=== PATIENT | female | born 1950 | race Hispanic/Latino ===

== ENCOUNTER 2018-07-29 22:05 | Inpatient (IN) | payer MEDICARE, OTHER ==
--- NOTE | 2018-07-29 22:23 | Emergency Department Report ---
Chief Complaint: Chest Pain Stated Complaint: CHEST TIGHTNESS Time Seen by Provider: 07/29/18 22:20 - HPI History of Present Illness: pt thinks she is having issues with her "pancreatitis" is c/o epigastric abd pain +N/V no diarrhea no fever states she has chest tightness had a FL in Mar 2016, pt has cardiac stent PMHx DM former smoker, 25 years ago non drinker PSHx of cholecystectomy MSE screening note: Focused history and physical exam performed. Due to findings the following was ordered: labs, CXR ED Disposition for MSE Condition: Stable
[2018-07-29 22:47] LABS: Basophils # (Auto) 0.1 K/mm3 (0.0-0.1); Basophils % (Auto) 0.4 % (0.0-1.8); Eosinophils % (Auto) 0.2 % (0.0-4.3); Hematocrit 39.1 % (30.3-42.9); Hemoglobin 13.1 gm/dl (10.1-14.3); Lymphocytes # (Auto) 0.8 K/mm3 (1.2-5.4); Lymphocytes % (Auto) 5.4 % (13.4-35.0); Mean Corpuscular HGB Conc 34 % (30-34); Mean Corpuscular Volume 88 fl (79-97); Monocytes # (Auto) 0.7 K/mm3 (0.0-0.8); Monocytes % (Auto) 4.9 % (0.0-7.3); Platelet Count 253 K/mm3 (140-440); Red Blood Count 4.46 M/mm3 (3.65-5.03)
[2018-07-29 22:58] LABS: INR 0.99 (0.87-1.13); Partial Thromboplastin Time 23.4 Sec. (24.2-36.6)
[2018-07-29 23:11] LABS: Alanine Aminotransferase 18 units/L (7-56); BUN/Creatinine Ratio 27; Blood Urea Nitrogen 19 mg/dL (7-17); Calcium 9.4 mg/dL (8.4-10.2); Hemolysis Index 7
[2018-07-30] MEDS ORDERED: ZOFRAN IV ONE (00:13)
[2018-07-30] MEDS ORDERED: NACL 0.9% 500 ML 500 ML IV ONE (00:58)
--- NOTE | 2018-07-30 01:04 | Emergency Department Report ---
ED Chest Pain HPI - General Chief Complaint: Chest Pain Stated Complaint: CHEST TIGHTNESS Time Seen by Provider: 07/29/18 22:20 Source: patient Mode of arrival: Ambulatory Limitations: No Limitations - History of Present Illness Initial Comments: 67-year-old female with a past medical history of GERD, STEMI requiring LAD stent placed March 2017, diabetes, and pancreatitis presents to the hospital complaining of nausea, epigastric pain, and chest pain 1 day. Patient states she had nausea since this a.m. She tried taking Zofran in the afternoon with minimal relief. She then started having intermittent chest tightness as well. Patient having nausea with several episodes of vomiting and intermittent diaphoresis. She presented to chronic shortness of breath that is unchanged from baseline. Patient has significant GERD and is chronically on Carafate, Pepcid, and Protonix but insists this is different from her GERD pain. She also has a history of pancreatitis in the past is unknown cause. She denies alcohol use and has had a previous cholecystectomy. Patient states that since tightness radiates to the back and upper abdomen. She has some mild discomfort around the umbilicus without reproducible pain. She denies fever or dysuria. She's been compliant with her medications. - Related Data Home Medications Medication Instructions Recorded Confirmed Last Taken Aspirin EC [Aspirin Enteric Coated 81 mg PO QDAY 07/12/17 07/12/17 06/19/17 TAB] Lisinopril [Zestril TAB] 2.5 mg PO QDAY 07/12/17 07/12/17 06/19/17 Metoprolol [Lopressor] 25 mg PO BID 07/12/17 07/12/17 06/19/17 Pantoprazole [Protonix] 40 mg PO QDAY 07/12/17 07/12/17 06/19/17 Allergies Allergy/AdvReac Type Severity Reaction Status Date / Time Penicillins Allergy Unknown Verified 07/12/17 09:43 Sulfa (Sulfonamide Allergy Unknown Verified 07/12/17 09:43 Antibiotics) Heart Score - HEART Score History: Moderately suspicious EKG: Non-specific Age: > 65 Risk factors: > 3 risk factors or hx of atherosclerotic disease Troponin: < normal limit HEART Score: 6 ED Review of Systems ROS: Stated complaint: CHEST TIGHTNESS Other details as noted in HPI Comment: All other systems reviewed and negative ED Past Medical Hx - Past Medical History Previous Medical History?: Yes Hx Hypertension: (denies) Hx Heart Attack/AMI: Yes (recent STEMI) Hx Diabetes: Yes Hx GERD: Yes Hx Arthritis: Yes Hx HIV: No Additional medical history: pancreatitis - Surgical History Past Surgical History?: Yes Hx Cholecystectomy: Yes Additional Surgical History: hysterectomy, bladder surgery - Social History Smoking Status: Never Smoker Substance Use Type: None - Medications Home Medications: Home Medications Medication Instructions Recorded Confirmed Last Taken Type Aspirin EC [Aspirin Enteric Coated 81 mg PO QDAY 07/12/17 07/12/17 06/19/17 History TAB] Lisinopril [Zestril TAB] 2.5 mg PO QDAY 07/12/17 07/12/17 06/19/17 History Metoprolol [Lopressor] 25 mg PO BID 07/12/17 07/12/17 06/19/17 History Pantoprazole [Protonix] 40 mg PO QDAY 07/12/17 07/12/17 06/19/17 History ED Physical Exam - General Limitations: No Limitations - Other Other exam information: General: No limitations, patient is alert in no acute distress Head exam: Atraumatic, normocephalic Eyes exam: Normal appearance, nonicteric sclera ENT: Moist mucous membrane Neck exam: Normal inspection, full range of motion, no meningismus nontender Respiratory exam: Clear to auscultation bilateral, no wheezes, rales, crackles Cardiovascular: Normal rate and rhythm, normal heart sounds Abdomen: Soft, nondistended, and nontender, with normal bowel sounds, no rebound, or guarding Extremity: Full range of motion normal inspection no deformity, no calf tenderness or edema Back: Normal Inspection, full range of motion, no tenderness Neurologic: Alert, oriented x3, cranial nerves intact, no motor or sensory deficit Psychiatric: normal affect, normal mood Skin: Warm, dry, intact ED Course Vital Signs 07/29/18 22:17 Temperature 98.1 F Pulse Rate 80 Respiratory 18 Rate Blood Pressure 127/71 O2 Sat by Pulse 96 Oximetry CHRIS score - Chris Score Age > 65: (1) Yes Aspirin use within the Past 7 Days: (1) Yes 3 or more CAD Risk Factors: (1) Yes 2 or more Angina events in past 24 hrs: (1) Yes Known CAD with more than 50% Stenosis: (1) Yes Elevated Cardiac Markers: (0) No ST Deviation Greater than 0.5mm: (0) No CHRIS Score: 5 ED Medical Decision Making - Lab Data Result diagrams: 07/29/18 22:30 07/29/18 22:30 Lab Results 07/29/18 07/29/18 07/29/18 Range/Units 22:30 22:30 22:30 WBC 15.0 H (4.5-11.0) K/mm3 RBC 4.46 (3.65-5.03) M/mm3 Hgb 13.1 (10.1-14.3) gm/dl Hct 39.1 (30.3-42.9) % MCV 88 (79-97) fl MCH 29 (28-32) pg MCHC 34 (30-34) % RDW 14.0 (13.2-15.2) % Plt Count 253 (140-440) K/mm3 Lymph % (Auto) 5.4 L (13.4-35.0) % [place] % (Auto) 4.9 (0.0-7.3) % Eos % (Auto) 0.2 (0.0-4.3) % Baso % (Auto) 0.4 (0.0-1.8) % Lymph # 0.8 L (1.2-5.4) K/mm3 [place] # 0.7 (0.0-0.8) K/mm3 Eos # 0.0 (0.0-0.4) K/mm3 Baso # 0.1 (0.0-0.1) K/mm3 Seg Neutrophils % 89.1 H (40.0-70.0) % Seg Neutrophils # 13.4 H (1.8-7.7) K/mm3 PT 13.7 (12.2-14.9) Sec. INR 0.99 (0.87-1.13) APTT 23.4 L (24.2-36.6) Sec. Sodium 142 (137-145) mmol/L Potassium 4.0 (3.6-5.0) mmol/L Chloride 103.2 (98-107) mmol/L Carbon Dioxide 24 (22-30) mmol/L Anion Gap 19 mmol/L BUN 19 H (7-17) mg/dL Creatinine 0.7 (0.7-1.2) mg/dL Estimated GFR > 60 ml/min BUN/Creatinine Ratio 27 % Glucose 127 H (65-100) mg/dL Calcium 9.4 (8.4-10.2) mg/dL Total Bilirubin 0.60 (0.1-1.2) mg/dL AST 19 (5-40) units/L ALT 18 (7-56) units/L Alkaline Phosphatase 78 (35-129) units/L Troponin T < 0.010 (0.00-0.029) ng/mL Total Protein 6.8 (6.3-8.2) g/dL Albumin 4.0 (3.9-5) g/dL Albumin/Globulin Ratio 1.4 % Lipase 76 H (13-60) units/L 07/30/18 Range/Units 01:09 WBC (4.5-11.0) K/mm3 RBC (3.65-5.03) M/mm3 Hgb (10.1-14.3) gm/dl Hct (30.3-42.9) % MCV (79-97) fl MCH (28-32) pg MCHC (30-34) % RDW (13.2-15.2) % Plt Count (140-440) K/mm3 Lymph % (Auto) (13.4-35.0) % [place] % (Auto) (0.0-7.3) % Eos % (Auto) (0.0-4.3) % Baso % (Auto) (0.0-1.8) % Lymph # (1.2-5.4) K/mm3 [place] # (0.0-0.8) K/mm3 Eos # (0.0-0.4) K/mm3 Baso # (0.0-0.1) K/mm3 Seg Neutrophils % (40.0-70.0) % Seg Neutrophils # (1.8-7.7) K/mm3 PT (12.2-14.9) Sec. INR (0.87-1.13) APTT (24.2-36.6) Sec. Sodium (137-145) mmol/L Potassium (3.6-5.0) mmol/L Chloride (98-107) mmol/L Carbon Dioxide (22-30) mmol/L Anion Gap mmol/L BUN (7-17) mg/dL Creatinine (0.7-1.2) mg/dL Estimated GFR ml/min BUN/Creatinine Ratio % Glucose (65-100) mg/dL Calcium (8.4-10.2) mg/dL Total Bilirubin (0.1-1.2) mg/dL AST (5-40) units/L ALT (7-56) units/L Alkaline Phosphatase (35-129) units/L Troponin T < 0.010 (0.00-0.029) ng/mL Total Protein (6.3-8.2) g/dL Albumin (3.9-5) g/dL Albumin/Globulin Ratio % Lipase (13-60) units/L - EKG Data -: EKG Interpreted by Me (previous anteroseptal infarct) EKG shows normal: sinus rhythm, axis (qrs 54), QRS complexes (qrsd 87), ST-T waves (no stemi/t inv) Rate: normal (74) - EKG Data When compared to previous EKG there are: changes noted (previous EKG shows ST elevation [place]) - Radiology Data Radiology results: report reviewed PROCEDURE: CT ABDOMEN PELVIS W CON TECHNIQUE: Computerized axial tomography of the abdomen and pelvis was performed after the IV injection of iodinated nonionic contrast. HISTORY: epigastric pain n,v COMPARISONS: None . FINDINGS: Visualized lower thorax: No significant abnormality. Liver: Normal size and attenuation. Spleen: Normal size and attenuation. Gallbladder and biliary system: Gallbladder is absent. There is mild dilatation of the biliary ductal system and common bile duct. No stones are identified.. Pancreas: Normal. A drenals: Normal. Kidneys: The kidneys have normal size. No hydronephrosis. No renal stones or masses. GI tract: The stomach is normal. The small bowel has normal caliber without obstruction. No ileus or enteritis. The cecum, appendix and colon are normal. . Lymph nodes and mesentery: Normal. Vasculature: Normal.. Bladder: Normal. Reproductive organs: No pelvic masses. Peritoneum: No free fluid. Musculoskeletal structures: No significant abnormality. Other: None . IMPRESSION: There is no evidence of intestinal or urinary tract obstruction. No ileus or enteritis. There is been previous cholecystectomy. There is slight dilatation of the central biliary ductal system and common bile duct. . PROCEDURE: XR CHEST 1V AP TECHNIQUE: Chest radiograph single view. HISTORY: cp COMPARISONS: None . FINDINGS: Heart: Normal. Mediastinum/Vessels: Normal. Lungs/Pleural space: Normal. Bony thorax: No acute osseous abnormality. Life support devices: None. IMPRESSION: No acute cardiopulmonary abnormality. - Differential Diagnosis WI, unstable angina, GERD, gastritis, PUD, pancreatitis Critical Care Time: No Critical care attestation.: If time is entered above; I have spent that time in minutes in the direct care of this critically ill patient, excluding procedure time. ED Disposition Clinical Impression: Chest pain, Epigastric pain, Nausea and vomiting, Hx of gastroesophageal reflux (GERD), Diabetes mellitus type 2 in nonobese, HTN (hypertension) Disposition: OP ADMIT IP TO THIS HOSP Is pt being admited?: Yes Condition: Stable Time of Disposition: 01:51 (Dr Ponce/hosp)
--- NOTE | 2018-07-30 01:47 | Cat Scan Report ---
PROCEDURE: CT ABDOMEN PELVIS W CON TECHNIQUE: Computerized axial tomography of the abdomen and pelvis was performed after the IV inject ion of iodinated nonionic contrast. HISTORY: epigastric pain n,v COMPARISONS: None . FINDINGS: Visualized lower thorax: No significant abnormality. Liver: Normal size and attenuation. Spleen: Normal size and attenuation. Gallbladder and biliary system: Gallbladder is absent. There is mild dilatation of the biliary ductal system and common bile duct. No stones are identified.. Pancreas: Normal. Adrenals: Normal. Kidneys: The kidneys have normal size. No hydronephrosis. No renal stones or masses. GI tract: The stomach is normal. The small bowel has normal caliber without obstruction. No ileus or enteritis. The cecum, appendix and colon are normal. . Lymph nodes and mesentery: Normal. Vasculature: Normal.. Bladder: Normal. Reproductive organs: No pelvic masses. Peritoneum: No free fluid. Musculoskeletal structures: No significant abnormality. Other: None . IMPRESSION: There is no evidence of intestinal or urinary tract obstruction. No ileus or enteritis. There is been previous cholecystectomy. There is slight dilatation of the central biliary ductal syst em and common bile duct. . This document is electronically signed by Duyen James DO., Jul 30 2018 01:45:20 AM ET
--- NOTE | 2018-07-30 01:49 | XRay Report ---
PROCEDURE: XR CHEST 1V AP TECHNIQUE: Chest radiograph single view. HISTORY: cp COMPARISONS: None . FINDINGS: Heart: Normal. Mediastinum/Vessels: Normal. Lungs/Pleural space: Normal. Bony thorax: No acute osseous abnormality. Life support devices: None. IMPRESSION: No acute cardiopulmonary abnormality. This document is electronically signed by Duyen James DO., Jul 30 2018 01:47:28 AM ET
[2018-07-30] MEDS ORDERED: MORPHINE IV PRN (02:36)
[2018-07-30] MEDS ORDERED: ZOFRAN IV PRN (02:37)
[2018-07-30] MEDS ORDERED: NITROSTAT SL PRN (02:38)
[2018-07-30] MEDS ORDERED: TYLENOL PR PRN (02:44)
[2018-07-30] MEDS ORDERED: DILAUDID IV PRN (03:02)
[2018-07-30] MEDS ORDERED: D50W (25GM) Syringe IV PRN (03:04)
--- NOTE | 2018-07-30 04:08 | History and Physical Report ---
CHIEF COMPLAINT: Chest pain. Other complaint includes epigastric abdominal pain. HISTORY OF PRESENT ILLNESS: The patient is a 67-year-old female who said she started having epigastric and retrosternal chest pain going on since yesterday. The pain was associated with nausea and vomiting. The patient described the pain as intermittent tightness in the chest and in the retrosternal and epigastric area. Pain radiates to the back. There is history of shortness of breath. There is also history of diaphoresis. The patient denied history of fever or chills and denied history of cough and she said she thought she was having the type of pain she had when she had pancreatitis. However, the patient does not drink alcohol and has had cholecystectomy in the past. There is no history of dizziness and no history of chills. PAST MEDICAL HISTORY: Pertinent for hypertension, coronary artery disease, status post myocardial infarction. Also, the patient has past history of diabetes mellitus, gastroesophageal reflux disease, arthritis and pancreatitis. PAST SURGICAL HISTORY: Pertinent for cholecystectomy, hysterectomy, and bladder surgery. FAMILY HISTORY: Noncontributory. SOCIAL HISTORY: The patient does not smoke, does not drink alcohol and does not use illicit drugs. MEDICATIONS: The patient is on aspirin 81 mg by mouth daily, lisinopril 2.5 mg by mouth daily, Lopressor 25 mg by mouth twice daily, pantoprazole for Protonix 40 mg by mouth daily. ALLERGIES: The patient is allergic to PENICILLIN DRUGS and SULFONAMIDE DRUGS. REVIEW OF SYSTEMS: CONSTITUTIONAL: There is no fever, no chills. Diaphoresis is present. HEENT: There is no headache or sore throat. CARDIOVASCULAR SYSTEM: Chest pain is present. No orthopnea. RESPIRATORY SYSTEM: Shortness of breath is present. No cough. GASTROINTESTINAL SYSTEM: Epigastric abdominal pain present. Nausea and vomiting present. No diarrhea, no constipation. NEUROLOGICAL SYSTEM: There is no numbness, no dizziness, no altered mental status. MUSCULOSKELETAL SYSTEM: There is no joint pain or swelling. DERMATOLOGICAL SYSTEM: There is no skin rash or itching. GENITOURINARY SYSTEM: There is no dysuria, hematuria, or flank pain. Rest of system review is normal. PHYSICAL EXAMINATION: GENERAL: At the time of exam, the patient was found to be alert, oriented x 3, and not in acute distress VITAL SIGNS: At initial time of presentation show temperature of 98.1 degrees Fahrenheit, pule of 80, respirations 18, blood pressure 127/71, O2 sat of 96% on room air. HEENT: Showed pupils to be equal, round, and reactive to light and accommodation. Extraocular motions are intact. NECK: Supple with no JVD or carotid bruit. CARDIOVASCULAR SYSTEM: Showed first and second heart sounds to be normal with no gallops or murmurs. RESPIRATORY SYSTEM: Showed good air entry on both sides of the lungs with no abnormal breath sounds. GASTROINTESTINAL SYSTEM: Showed abdomen to be full, soft with epigastric tenderness and no rebound tenderness or rigidity. No organomegaly was elicited. Bowel sound is normal. NEUROLOGICAL SYSTEM: Showed no focal deficit. MUSCULOSKELETAL SYSTEM: Showed no joint swelling or tenderness. DERMATOLOGICAL SYSTEM: Showed no skin rash. GENITOURINARY SYSTEM: Showed no costovertebral angle tenderness. PERTINENT LABORATORY AND IMAGING STUDIES: The patient had CT of the abdomen and pelvis done and this shows no evidence of intestinal or urinary tract obstruction. No ileus or enteritis was found. There is evidence of previous cholecystectomy. The CT abdomen and pelvis also showed slight dilatation of the central biliary ductal system and the common bile duct. The patient had chest x-ray done and chest x-ray shows no acute cardiopulmonary abnormalities. Lab results: The patient had CBC done with elevated white count of 15,000 with normal hemoglobin, normal hematocrit, and normal MCV with CBC differential showing elevated segmented neutrophil count of 89.1%. The patient's coagulation study was unremarkable. The patient's chemistry showed slightly elevated BUN of 19 with normal creatinine and normal GFR of greater 60. The patient's cardiac enzymes show normal troponin level. The patient's lipase level is slightly elevated with a value of 76. DIAGNOSES: 1. Chest pain. 2. Epigastric abdominal pain. 3. Dilated common bile duct on CT scan. PLAN OF CARE: 1. The patient will be admitted to telemetry. 2. The patient will have serial cardiac enzymes involving troponin, total CK and CK-MB checked every 6 hour x 2 more levels. 3. The patient will be n.p.o. for Lexiscan stress test in the morning. 4. The patient will have a GI consult with [facility], notably Dr. Jamie Ervin because of epigastric abdominal pain with dilatation of common bile duct on CT scan. 5. The patient will be on nitro paste 0.5 inch topically t.i.d. and will also be on Nitrostat or sublingual nitroglycerin 0.4 mg every 5 minutes as needed for breakthrough chest pain. 6. The patient will be on IV Dilaudid 0.5 mg q.4 hours as needed for pain and will be on IV Zofran 4 mg every 6 hours as needed for nausea and vomiting. 7. The patient will be on Tylenol 650 mg rectally every 4 hours for headache and fever and will be on daily aspirin 325 mg by mouth daily. 8. The patient will be on heparin 5000 units subQ q.12 hours for DVT prophylaxis. 9. The patient will be on oxygen by nasal cannula at 2 liters per minute. 10. The patient will remain n.p.o. until Lexiscan stress test is done this morning. JOB# [id number] [facility]/AMPARO MTDD
[2018-07-30 06:04] LABS: Bilirubin,Urine NEG (Negative); Blood,Urine NEG (Negative); Color,Urine Yellow (Yellow); Mucus,Urine FEW /HPF; Protein,Urine <15 mg/dL mg/dL (Negative); Urobilinogen,Urine < 2.0 mg/dL (<2.0); WBC,Urine < 1.0 /HPF (0.0-6.0)
[2018-07-30 06:42] LABS: Creatine Kinase MB 3.5 ng/mL (0.0-4.0)
[2018-07-30] MEDS: HumuLIN R SUB-Q SCH ×5 (07:48→22:58)
[2018-07-30] MEDS: NITRO-BID 2% TP SCH ×4 (07:48→17:02)
[2018-07-30] MEDS: ASPIRIN PO SCH (10:30)
[2018-07-30] MEDS: HEPARIN SUB-Q SCH ×2 (10:30→22:56)
--- NOTE | 2018-07-30 11:47 | Consultation ---
History of Present Illness Consult date: 07/30/18 Consult reason: chest pain History of present illness: This is a 67 year old woman with a history of ischemic cardiomyopathy and single vessel coronary artery disease with stenting of the LAD following an acute anterior wall ST elevation myocardial infarction a year ago. Patient reports compliance with medical therapy including plavix and aspirin. 2 months ago, an outpatient echocardiogram reports a mildly decreased left ventricular ejection fraction 40-45%, an improvement from EF 30-35% a year ago. Patient presents to this hospital with complaints of nausea, vomiting and severe epigastric pain. She reports symptoms are similar to pancreatic flare. She denies chest pain on exertion and unusual shortness of breath. Chest x-ray is normal and an abdominal CT scan reports no acute process. Cardiac enzymes are benign and her ECG is sinus rhythm, no acute ischemic changes. A cardiac consultation was requested for further evaluation. Medications and Allergies Allergies Allergy/AdvReac Type Severity Reaction Status Date / Time Penicillins Allergy Unknown Verified 07/12/17 09:43 Sulfa (Sulfonamide Allergy Unknown Verified 07/12/17 09:43 Antibiotics) Home Medications Medication Instructions Recorded Confirmed Last Taken Type Aspirin 1 tab PO DAILY 07/30/18 07/30/18 Unknown History AtorvaSTATin [Lipitor] 40 mg PO QHS 07/30/18 07/30/18 Unknown History Cholecalciferol (Vitamin D3) 1 tab PO DAILY 07/30/18 07/30/18 Unknown History [Vitamin D3 2,000 UNIT CAP] Clopidogrel [Plavix] 75 mg PO QDAY 07/30/18 07/30/18 Unknown History Cyanocobalamin (Vitamin B-12) 2,500 mcg PO DAILY 07/30/18 07/30/18 Unknown History [Vitamin B12] Famotidine 20 mg PO BID 07/30/18 07/30/18 Unknown History Lisinopril [Zestril TAB] 2.5 mg PO DAILY 07/30/18 07/30/18 Unknown History Lisinopril [Zestril TAB] 2.5 mg PO QDAY 07/30/18 07/30/18 Unknown History Metoprolol [Lopressor] 25 mg PO DAILY 07/30/18 07/30/18 Unknown History Pantoprazole [Protonix] 40 mg PO DAILY 07/30/18 07/30/18 Unknown History Sucralfate [Carafate] 1 gm PO Q6HR 07/30/18 07/30/18 Unknown History metFORMIN [Glucophage] 500 mg PO BID 07/30/18 07/30/18 Unknown History Active Meds: Active Medications Acetaminophen (Tylenol) 650 mg IA Q4H PRN PRN Reason: Headache Aspirin (Aspirin) 325 mg PO QDAY [facility] Last Admin: 07/30/18 10:30 Dose: Not Given Documented by: Dextrose (D50w (25gm) Syringe) 50 ml IV PRN PRN PRN Reason: Hypoglycemia Heparin Sodium (Porcine) (Heparin) 5,000 unit SUB-Q Q12HR [facility] Last Admin: 07/30/18 10:30 Dose: Not Given Documented by: Hydromorphone HCl (Dilaudid) 0.5 mg IV Q4H PRN PRN Reason: Pain , Severe (7-10) Insulin Human Regular (Humulin R) 0 units SUB-Q Q4HR [facility]; Protocol Last Admin: 07/30/18 10:19 Dose: Not Given Documented by: Nitroglycerin (Nitro-Bid 2%) 0.5 inch TP QIDNTG [facility]; Protocol Last Admin: 07/30/18 10:19 Dose: Not Given Documented by: Nitroglycerin (Nitrostat) 0.4 mg SL .Q5MIN PRN PRN Reason: Chest Pain Ondansetron HCl (Zofran) 4 mg IV Q6H PRN PRN Reason: Nausea And Vomiting Physical Examination Vital Signs Temp Pulse Resp BP Pulse Ox 98.1 F 80 18 127/71 96 07/29/18 22:17 07/29/18 22:17 07/29/18 22:17 07/29/18 22:17 07/29/18 22:17 General appearance: no acute distress HEENT: Positive: PERRL Neck: Positive: trachea midline Cardiac: Positive: Reg Rate and Rhythm Lungs: Positive: Normal Breath Sounds, Decreased Breath Sounds Neuro: Positive: Grossly Intact Extremities: Absent: edema Results 07/29/18 22:30 07/29/18 22:30 Cardiac Enzymes 07/29/18 07/30/18 Range/Units 22:30 05:52 AST 19 (5-40) units/L CK-MB (CK-2) 3.5 (0.0-4.0) ng/mL Coagulation 07/29/18 Range/Units 22:30 PT 13.7 (12.2-14.9) Sec. INR 0.99 (0.87-1.13) APTT 23.4 L (24.2-36.6) Sec. CBC 07/29/18 Range/Units 22:30 WBC 15.0 H (4.5-11.0) K/mm3 RBC 4.46 (3.65-5.03) M/mm3 Hgb 13.1 (10.1-14.3) gm/dl Hct 39.1 (30.3-42.9) % Plt Count 253 (140-440) K/mm3 Lymph # 0.8 L (1.2-5.4) K/mm3 [place] # 0.7 (0.0-0.8) K/mm3 Eos # 0.0 (0.0-0.4) K/mm3 Baso # 0.1 (0.0-0.1) K/mm3 Comprehensive Metabolic Panel 07/29/18 Range/Units 22:30 Sodium 142 (137-145) mmol/L Potassium 4.0 (3.6-5.0) mmol/L Chloride 103.2 (98-107) mmol/L Carbon Dioxide 24 (22-30) mmol/L BUN 19 H (7-17) mg/dL Creatinine 0.7 (0.7-1.2) mg/dL Glucose 127 H (65-100) mg/dL Calcium 9.4 (8.4-10.2) mg/dL AST 19 (5-40) units/L ALT 18 (7-56) units/L Alkaline Phosphatase 78 (35-129) units/L Total Protein 6.8 (6.3-8.2) g/dL Albumin 4.0 (3.9-5) g/dL Assessment and Plan Chest pain Hx of OR/CAD s/p PCI of the LAD 07/2017. Ischemic Cardiomyopathy improved EF 40-45% by echo 04/2018. Diabetes GERD Hypertension
[2018-07-30 14:31] LABS: Creatine Kinase MB 3.2 ng/mL (0.0-4.0)
[2018-07-30] MEDS ORDERED: DULCOLAX PR STA (14:35)
--- NOTE | 2018-07-30 14:39 | Gastroenterology Consultation ---
<CATHIE BRIAN - Last Filed: 07/30/18 14:59> History of Present Illness - Reason for Consult Consult date: 07/30/18 epigastric pain, dilated CBD Requesting physician: CHENTE SALDAÑA - History of Present Illness Patient is a 67 y/o female with PMH of GERD, STEMI (s/p stent 03/2017; on plavix and ASA), DM, and pancreatitis who presented to ED with c/o epigastric pain that radiates to back, substernal CP, and N/V. Cardiology following with stress test pending. Upon admission, she underwent an abd CT that showed slight dilation of biliary ductal system and CBD to which GI has been consulted. Patient is previously known to our service due to hx of GERD/chronic dyspepsia but is now being followed by Dr. Jacobo with [facility] in [place]. Last EGD in December of last year with negative results per pt report. She has also leo d a couple of episodes of pancreatitis in the past with unclear etiology (s/p cholecystectomy; no Fhx of pancreatic disease; no alcohol use) with extensive f/u workup with MRCP with negative results per pt report. On daily PPI, pepcid, and carafate at home with GERD well controlled. This afternoon patient reports feeling better with epigastric pain and N/v now improved. Requesting to eat. Has some mild continued CP but denies fever, SOB, wt loss, signs of bleeding, jaundice, or LGI symptoms. Past History Past Medical History: other (as per HPI) Past Surgical History: cholecystectomy, hysterectomy, Other (bladder surgery) Social history: denies: smoking, alcohol abuse Medications and Allergies Allergies Allergy/AdvReac Type Severity Reaction Status Date / Time Penicillins Allergy Unknown Verified 07/12/17 09:43 Sulfa (Sulfonamide Allergy Unknown Verified 07/12/17 09:43 Antibiotics) Home Medications Medication Instructions Recorded Confirmed Last Taken Type Aspirin 1 tab PO DAILY 07/30/18 07/30/18 Unknown History AtorvaSTATin [Lipitor] 40 mg PO QHS 07/30/18 07/30/18 Unknown History Cholecalciferol (Vitamin D3) 1 tab PO DAILY 07/30/18 07/30/18 Unknown History [Vitamin D3 2,000 UNIT CAP] Clopidogrel [Plavix] 75 mg PO QDAY 07/30/18 07/30/18 Unknown History Cyanocobalamin (Vitamin B-12) 2,500 mcg PO DAILY 07/30/18 07/30/18 Unknown History [Vitamin B12] Famotidine 20 mg PO BID 07/30/18 07/30/18 Unknown History Lisinopril [Zestril TAB] 2.5 mg PO DAILY 07/30/18 07/30/18 Unknown History Lisinopril [Zestril TAB] 2.5 mg PO QDAY 07/30/18 07/30/18 Unknown History Metoprolol [Lopressor] 25 mg PO DAILY 07/30/18 07/30/18 Unknown History Pantoprazole [Protonix] 40 mg PO DAILY 07/30/18 07/30/18 Unknown History Sucralfate [Carafate] 1 gm PO Q6HR 07/30/18 07/30/18 Unknown History metFORMIN [Glucophage] 500 mg PO BID 07/30/18 07/30/18 Unknown History Active Meds: Active Medications Acetaminophen (Tylenol) 650 mg [place] Q4H PRN PRN Reason: Headache Aspirin (Aspirin) 325 mg PO QDAY [facility] Last Admin: 07/30/18 10:30 Dose: Not Given Documented by: Dextrose (D50w (25gm) Syringe) 50 ml IV PRN PRN PRN Reason: Hypoglycemia Heparin Sodium (Porcine) (Heparin) 5,000 unit SUB-Q Q12HR [facility] Last Admin: 07/30/18 10:30 Dose: Not Given Documented by: Hydromorphone HCl (Dilaudid) 0.5 mg IV Q4H PRN PRN Reason: Pain , Severe (7-10) Insulin Human Regular (Humulin R) 0 units SUB-Q Q4HR [facility]; Protocol Last Admin: 07/30/18 10:19 Dose: Not Given Documented by: Nitroglycerin (Nitro-Bid 2%) 0.5 inch TP QIDNTG [facility]; Protocol Last Admin: 07/30/18 13:25 Dose: Not Given Documented by: Nitroglycerin (Nitrostat) 0.4 mg SL .Q5MIN PRN PRN Reason: Chest Pain Ondansetron HCl (Zofran) 4 mg IV Q6H PRN PRN Reason: Nausea And Vomiting Polyethylene Glycol/Electrolytes (Golytely) 2,000 ml PO ONCE ONE Stop: 07/30/18 16:27 medications reviewed/updated as required Review of Systems - Review of Systems All systems: negative Cardiovascular: chest pain Gastrointestinal: abdominal pain (epigastric), nausea, vomiting Exam - Constitutional Vital Signs: Temp Pulse Resp BP Pulse Ox 98.3 F 59 L 18 119/53 98 07/30/18 11:19 07/30/18 13:25 07/30/18 12:41 07/30/18 13:25 07/30/18 12:41 General appearance: no acute distress - EENT Eyes: PERRL, EOM intact ENT: hearing intact - Respiratory Respiratory: bilateral: CTA - Cardiovascular Rhythm: regular - Gastrointestinal General gastrointestinal: Present: soft, non-tender, non-distended, normal bowel sounds - Neurologic Neurological: alert and oriented x3 - Labs CBC & Chem 7: 07/29/18 22:30 07/29/18 22:30 Lab Results: Laboratory Results - last 24 hr 07/29/18 07/29/18 07/29/18 22:30 22:30 22:30 WBC 15.0 H RBC 4.46 Hgb 13.1 Hct 39.1 MCV 88 MCH 29 MCHC 34 RDW 14.0 Plt Count 253 Lymph % (Auto) 5.4 L [place] % (Auto) 4.9 Eos % (Auto) 0.2 Baso % (Auto) 0.4 Lymph # 0.8 L [place] # 0.7 Eos # 0.0 Baso # 0.1 Seg Neutrophils % 89.1 H Seg Neutrophils # 13.4 H PT 13.7 INR 0.99 APTT 23.4 L Sodium 142 Potassium 4.0 Chloride 103.2 Carbon Dioxide 24 Anion Gap 19 BUN 19 H Creatinine 0.7 Estimated GFR > 60 BUN/Creatinine Ratio 27 Glucose 127 H POC Glucose Calcium 9.4 Total Bilirubin 0.60 AST 19 ALT 18 Alkaline Phosphatase 78 Total Creatine Kinase CK-MB (CK-2) CK-MB (CK-2) Rel Index Troponin T < 0.010 Total Protein 6.8 Albumin 4.0 Albumin/Globulin Ratio 1.4 Lipase 76 H Urine Color Urine Turbidity Urine pH Ur Specific [place] Urine Protein Urine Glucose (UA) Urine Ketones Urine Blood Urine Nitrite Urine Bilirubin Urine Urobilinogen Ur Leukocyte Esterase Urine WBC (Auto) Urine RBC (Auto) Urine Mucus 07/30/18 07/30/18 07/30/18 01:09 04:00 05:52 WBC RBC Hgb Hct MCV MCH MCHC RDW Plt Count Lymph % (Auto) [place] % (Auto) Eos % (Auto) Baso % (Auto) Lymph # [place] # Eos # Baso # Seg Neutrophils % Seg Neutrophils # PT INR APTT Sodium Potassium Chloride Carbon Dioxide Anion Gap BUN Creatinine Estimated GFR BUN/Creatinine Ratio Glucose POC Glucose Calcium Total Bilirubin AST ALT Alkaline Phosphatase Total Creatine Kinase 79 CK-MB (CK-2) 3.5 CK-MB (CK-2) Rel Index 4.4 H Troponin T < 0.010 < 0.010 < 0.010 Total Protein Albumin Albumin/Globulin Ratio Lipase Urine Color Urine Turbidity Urine pH Ur Specific [place] Urine Protein Urine Glucose (UA) Urine Ketones Urine Blood Urine Nitrite Urine Bilirubin Urine Urobilinogen Ur Leukocyte Esterase Urine WBC (Auto) Urine RBC (Auto) Urine Mucus 07/30/18 07/30/18 07/30/18 07:42 12:01 12:47 WBC RBC Hgb Hct MCV MCH MCHC RDW Plt Count Lymph % (Auto) [place] % (Auto) Eos % (Auto) Baso % (Auto) Lymph # [place] # Eos # Baso # Seg Neutrophils % Seg Neutrophils # PT INR APTT Sodium Potassium Chloride Carbon Dioxide Anion Gap BUN Creatinine Estimated GFR BUN/Creatinine Ratio Glucose POC Glucose 88 89 Calcium Total Bilirubin AST ALT Alkaline Phosphatase Total Creatine Kinase 76 CK-MB (CK-2) 3.2 CK-MB (CK-2) Rel Index 4.2 H Troponin T < 0.010 Total Protein Albumin Albumin/Globulin Ratio Lipase Urine Color Urine Turbidity Urine pH Ur Specific [place] Urine Protein Urine Glucose (UA) Urine Ketones Urine Blood Urine Nitrite Urine Bilirubin Urine Urobilinogen Ur Leukocyte Esterase Urine WBC (Auto) Urine RBC (Auto) Urine Mucus 07/30/18 Unknown WBC RBC Hgb Hct MCV MCH MCHC RDW Plt Count Lymph % (Auto) [place] % (Auto) Eos % (Auto) Baso % (Auto) Lymph # [place] # Eos # Baso # Seg Neutrophils % Seg Neutrophils # PT INR APTT Sodium Potassium Chloride Carbon Dioxide Anion Gap BUN Creatinine Estimated GFR BUN/Creatinine Ratio Glucose POC Glucose Calcium Total Bilirubin AST ALT Alkaline Phosphatase Total Creatine Kinase CK-MB (CK-2) CK-MB (CK-2) Rel Index Troponin T Total Protein Albumin Albumin/Globulin Ratio Lipase Urine Color Yellow Urine Turbidity Clear Urine pH 6.0 Ur Specific [place] > 1.058 H Urine Protein <15 mg/dl Urine Glucose (UA) Neg Urine Ketones Neg Urine Blood Neg Urine Nitrite Neg Urine Bilirubin Neg Urine Urobilinogen < 2.0 Ur Leukocyte Esterase Neg Urine WBC (Auto) < 1.0 Urine RBC (Auto) 1.0 Urine Mucus Few Assessment and Plan 1.epigastric pain 2.N/V 3.H/o GERD 4.H/o pancreatitis (etiology unclear; no alcohol; s/p CCY; no Fhx of pancreatic disease) -afebrile -WBC 15.0 -H/H WNL -LFTs WNL -lipase 76 -abd CT showed slight dilation in biliary ductal system and CBD (significance of results unclear) -etiology unclear- patient with extensive prior workup with EGDs, s/p CCY, and MRCP with negative results per pt report -clinically, patient reports feeling better today with epigastric pain and N/V now improved. Requesting to eat. -okay to resume diet -no plan for scope at this time (last EGD 12/[address] [facility] with negative results per) -resume home reflux medications (PPI, pepcid, carafate) -continue to trend labs and supportive care -once tolerating PO, patient is okay to be d/c per GI standpoint with f/u with primary GI for further management 5.CP 6.Hx of [place] (s/p PCI 03/2017) -cardiology following with stress test pending <KEERTHI GILLIS - Last Filed: 07/30/18 21:05> Medications and Allergies Active Meds: Active Medications Acetaminophen (Tylenol) 650 mg [place] Q4H PRN PRN Reason: Headache Aspirin (Aspirin) 325 mg PO QDAY [facility] Last Admin: 07/30/18 10:30 Dose: Not Given Documented by: Dextrose (D50w (25gm) Syringe) 50 ml IV PRN PRN PRN Reason: Hypoglycemia Heparin Sodium (Porcine) (Heparin) 5,000 unit SUB-Q Q12HR [facility] Last Admin: 07/30/18 10:30 Dose: Not Given Documented by: Hydromorphone HCl (Dilaudid) 0.5 mg IV Q4H PRN PRN Reason: Pain , Severe (7-10) Insulin Human Regular (Humulin R) 0 units SUB-Q Q4HR [facility]; Protocol Last Admin: 07/30/18 17:45 Dose: Not Given Documented by: Nitroglycerin (Nitro-Bid 2%) 0.5 inch TP QIDNTG [facility]; Protocol Last Admin: 07/30/18 17:02 Dose: Not Given Documented by: Nitroglycerin (Nitrostat) 0.4 mg SL .Q5MIN PRN PRN Reason: Chest Pain Ondansetron HCl (Zofran) 4 mg IV Q6H PRN PRN Reason: Nausea And Vomiting Exam - Constitutional Vital Signs: Temp Pulse Resp BP Pulse Ox 98.0 F 56 L 16 103/56 96 07/30/18 19:56 07/30/18 19:56 07/30/18 19:56 07/30/18 19:56 07/30/18 19:56 - Labs CBC & Chem 7: 07/29/18 22:30 07/29/18 22:30 Lab Results: Laboratory Results - last 24 hr 07/29/18 07/29/18 07/29/18 22:30 22:30 22:30 WBC 15.0 H RBC 4.46 Hgb 13.1 Hct 39.1 MCV 88 MCH 29 MCHC 34 RDW 14.0 Plt Count 253 Lymph % (Auto) 5.4 L [place] % (Auto) 4.9 Eos % (Auto) 0.2 Baso % (Auto) 0.4 Lymph # 0.8 L [place] # 0.7 Eos # 0.0 Baso # 0.1 Seg Neutrophils % 89.1 H Seg Neutrophils # 13.4 H PT 13.7 INR 0.99 APTT 23.4 L Sodium 142 Potassium 4.0 Chloride 103.2 Carbon Dioxide 24 Anion Gap 19 BUN 19 H Creatinine 0.7 Estimated GFR > 60 BUN/Creatinine Ratio 27 Glucose 127 H POC Glucose Calcium 9.4 Total Bilirubin 0.60 AST 19 ALT 18 Alkaline Phosphatase 78 Total Creatine Kinase CK-MB (CK-2) CK-MB (CK-2) Rel Index Troponin T < 0.010 Total Protein 6.8 Albumin 4.0 Albumin/Globulin Ratio 1.4 Lipase 76 H Urine Color Urine Turbidity Urine pH Ur Specific [place] Urine Protein Urine Glucose (UA) Urine Ketones Urine Blood Urine Nitrite Urine Bilirubin Urine Urobilinogen Ur Leukocyte Esterase Urine WBC (Auto) Urine RBC (Auto) Urine Mucus 07/30/18 07/30/18 07/30/18 01:09 04:00 05:52 WBC RBC Hgb Hct MCV MCH MCHC RDW Plt Count Lymph % (Auto) [place] % (Auto) Eos % (Auto) Baso % (Auto) Lymph # [place] # Eos # Baso # Seg Neutrophils % Seg Neutrophils # PT INR APTT Sodium Potassium Chloride Carbon Dioxide Anion Gap BUN Creatinine Estimated GFR BUN/Creatinine Ratio Glucose POC Glucose Calcium Total Bilirubin AST ALT Alkaline Phosphatase Total Creatine Kinase 79 CK-MB (CK-2) 3.5 CK-MB (CK-2) Rel Index 4.4 H Troponin T < 0.010 < 0.010 < 0.010 Total Protein Albumin Albumin/Globulin Ratio Lipase Urine Color Urine Turbidity Urine pH Ur Specific [place] Urine Protein Urine Glucose (UA) Urine Ketones Urine Blood Urine Nitrite Urine Bilirubin Urine Urobilinogen Ur Leukocyte Esterase Urine WBC (Auto) Urine RBC (Auto) Urine Mucus 07/30/18 07/30/18 07/30/18 07:42 12:01 12:47 WBC RBC Hgb Hct MCV MCH MCHC RDW Plt Count Lymph % (Auto) [place] % (Auto) Eos % (Auto) Baso % (Auto) Lymph # [place] # Eos # Baso # Seg Neutrophils % Seg Neutrophils # PT INR APTT Sodium Potassium Chloride Carbon Dioxide Anion Gap BUN Creatinine Estimated GFR BUN/Creatinine Ratio Glucose POC Glucose 88 89 Calcium Total Bilirubin AST ALT Alkaline Phosphatase Total Creatine Kinase 76 CK-MB (CK-2) 3.2 CK-MB (CK-2) Rel Index 4.2 H Troponin T < 0.010 Total Protein Albumin Albumin/Globulin Ratio Lipase Urine Color Urine Turbidity Urine pH Ur Specific [place] Urine Protein Urine Glucose (UA) Urine Ketones Urine Blood Urine Nitrite Urine Bilirubin Urine Urobilinogen Ur Leukocyte Esterase Urine WBC (Auto) Urine RBC (Auto) Urine Mucus 07/30/18 07/30/18 07/30/18 15:36 17:48 Unknown WBC RBC Hgb Hct MCV MCH MCHC RDW Plt Count Lymph % (Auto) [place] % (Auto) Eos % (Auto) Baso % (Auto) Lymph # [place] # Eos # Baso # Seg Neutrophils % Seg Neutrophils # PT INR APTT Sodium Potassium Chloride Carbon Dioxide Anion Gap BUN Creatinine Estimated GFR BUN/Creatinine Ratio Glucose POC Glucose 87 83 Calcium Total Bilirubin AST ALT Alkaline Phosphatase Total Creatine Kinase CK-MB (CK-2) CK-MB (CK-2) Rel Index Troponin T Total Protein Albumin Albumin/Globulin Ratio Lipase Urine Color Yellow Urine Turbidity Clear Urine pH 6.0 Ur Specific [place] > 1.058 H Urine Protein <15 mg/dl Urine Glucose (UA) Neg Urine Ketones Neg Urine Blood Neg Urine Nitrite Neg Urine Bilirubin Neg Urine Urobilinogen < 2.0 Ur Leukocyte Esterase Neg Urine WBC (Auto) < 1.0 Urine RBC (Auto) 1.0 Urine Mucus Few Assessment and Plan Patient seen and examined. I have reviewed the advanced practitioner's evaluation, assessment, and plan, and agree with them. I note the following additions: patient is clinically starting to improve, only mild TTP on exam and no nausea currently, and she reports fairly recent GI eval with her outside gastro. Therefore, given the lack of urgency to evaluate her symptoms, and her longstanding relationship with a chief operator, would recommend she complete the evaluation with him. May advance diet as tolerated and discharge once cards clears her. If however symptoms return, then will pursue further inpatient evaluation.
[2018-07-30] MEDS ORDERED: GOLYTELY PO ONE (16:26)
--- NOTE | 2018-07-30 18:48 | Event Note ---
Date: 07/30/18 Patient with chest pain and epigastric pain. I have seen and examined her. For stress test tomorrow.
[2018-07-31] MEDS: HumuLIN R SUB-Q SCH ×2 (02:44→06:36)
[2018-07-31 05:18] LABS: Basophils % (Auto) 0.6 % (0.0-1.8); Eosinophils # (Auto) 0.1 K/mm3 (0.0-0.4); Eosinophils % (Auto) 2.5 % (0.0-4.3); Hematocrit 35.7 % (30.3-42.9); Lymphocytes % (Auto) 37.3 % (13.4-35.0); Mean Corpuscular HGB Conc 34 % (30-34); Mean Corpuscular Volume 88 fl (79-97); Monocytes # (Auto) 0.6 K/mm3 (0.0-0.8); Monocytes % (Auto) 10.5 % (0.0-7.3); Platelet Count 212 K/mm3 (140-440); Red Blood Count 4.06 M/mm3 (3.65-5.03)
[2018-07-31 05:49] LABS: Alanine Aminotransferase 13 units/L (7-56); Albumin 3.3 g/dL (3.9-5); BUN/Creatinine Ratio 27; Blood Urea Nitrogen 16 mg/dL (7-17); Hemolysis Index 6
[2018-07-31] MEDS: NITRO-BID 2% TP SCH ×2 (06:37→12:07)
--- NOTE | 2018-07-31 11:48 | Event Note ---
Date: 07/31/18 The patient underwent a stress test during which she exercised for 7-1/2 minutes of Alexey protocol, reaching stage III and achieving 8.5 METs. There was no chest pain, test was stopped for fatigue. ECG at peak exercise revealed nonspecific ST changes with no ischemia. There was no significant dysrhythmias with exercise. Thallium images are pending for final interpretation.
[2018-07-31] MEDS: HEPARIN SUB-Q SCH (12:07)
[2018-07-31] MEDS: ASPIRIN PO SCH (12:07)
[2018-07-31 13:09] VITALS: BP 118/60
--- NOTE | 2018-07-31 13:19 | Discharge Summary ---
Providers - Providers Date of Admission: 07/30/18 02:33 Date of discharge: 07/31/18 Attending physician: ELLEN GODOY 07/30/18 06:00 Consult to Physician [CONS] Routine Comment: Consulting Provider: JODI ESTES Physician Instructions: Reason For Exam: EPIGASTRIC ABDOMINAL PAIN WITH DILATED C/BILE DUCT 07/30/18 08:07 Consult to Physician [CONS] Routine Comment: Consulting Provider: GLO VALADEZ Physician Instructions: Reason For Exam: chest pain [facility] Reason for admission: cp Condition: Stable Hospital course: Patient is a 67 y/o female with PMH of GERD, STEMI (s/p stent 03/2017; on plavix and ASA), DM, and pancreatitis who presented to ED with c/o epigastric pain that radiated to back, substernal CP, and N/V. Upon admission, she underwent an abd CT that showed slight dilation of biliary ductal system and CBD to which GI was consulted. Last EGD in December of last year with negative results per pt report. She has also had a couple of episodes of pancreatitis in the past with unclear etiology (s/p cholecystectomy; no Fhx of pancreatic disease; no alcohol use) with extensive f/u workup with MRCP with negative results per pt report. On hospital day # 2, patient reported feeling better with epigastric pain and N/v now improved. Pt responded to conservative, supportive care. Diet was also advanced which she tolerated. Cardiology consulted for the CP and recommended stress test. Pt will be d/cd home if results negative. Dedicated d/c time 32 min Disposition: DC-01 TO HOME OR SELFCARE Time spent for discharge: 32 - Discharge Diagnoses (1) Chest pain Status: Acute (2) Diabetes mellitus type 2 in nonobese Status: Acute (3) Epigastric pain Status: Acute (4) Hx of gastroesophageal reflux (GERD) Status: Acute (5) Nausea and vomiting Status: Acute (6) HTN (hypertension) Status: Chronic Qualifiers: Core Measure Documentation - Palliative Care Palliative Care/ Comfort Measures: Not Applicable - Core Measures Any of the following diagnoses?: none Exam - Constitutional Vitals: Temp Pulse Resp BP Pulse Ox 97.6 F 57 L 16 118/60 99 07/31/18 12:13 07/31/18 12:13 07/31/18 12:13 07/31/18 12:13 07/31/18 12:13 General appearance: Present: no acute distress, well-nourished - EENT Eyes: Present: PERRL ENT: hearing intact, clear oral mucosa - Neck Neck: Present: supple, normal ROM - Respiratory Respiratory effort: normal Respiratory: bilateral: CTA - Cardiovascular Heart Sounds: Present: S1 & S2. Absent: rub, click - Extremities Extremities: pulses symmetrical, No edema Peripheral Pulses: within normal limits - Abdominal General gastrointestinal: Present: soft, non-tender, non-distended, normal bowel sounds Female genitourinary: Present: normal - Integumentary Integumentary: Present: clear, warm, dry - Musculoskeletal Musculoskeletal: gait normal, strength equal bilaterally - Psychiatric Psychiatric: appropriate mood/affect, intact judgment & insight - Neurologic Neurologic: CNII-XII intact, moves all extremities Plan Activity: no restrictions Weight Bearing Status: Full Weight Bearing Diet: diabetic [facility] [place] [Primary Care Provider] - 3-5 Days GLO VALADEZ MD [Staff Physician] - 7 Days DEREJE NAVA MD [Staff Physician] - 7 Days
--- NOTE | 2018-07-31 15:20 | Gastroenterology Progress Note ---
<CATHIE BRIAN - Last Filed: 07/31/18 15:21> Assessment and Plan 1.epigastric pain 2.N/V 3.H/o GERD 4.H/o pancreatitis (etiology unclear; no alcohol; s/p CCY; no Fhx of pancreatic disease) -afebrile -WBC 5.3-trended down -H/H WNL -LFTs WNL -lipase 29-trended down -abd CT showed slight dilation in biliary ductal system and CBD (significance of results unclear) -etiology unclear- patient with extensive prior workup with EGDs, s/p CCY, and MRCP with negative results with primary GI -clinically, patient is stable with abd pain and N/V resolved. Tolerating diet. -no plan for scope (last EGD 12/[address] Jacobo with [facility] with negative results per) or further evaluation at this time given lack of urgency with symptoms now resolved -resume home reflux medications (PPI, pepcid, carafate) -continue to trend labs and supportive care -patient okay to be d/c per GI standpoint with f/u with primary GI for further management -will sign off, please call if needed 5.CP 6.Hx of CT (s/p PCI 03/2017) -stress test today with negative results -cardiology following Subjective Date of service: 07/31/18 Principal diagnosis: epigastric pain, dilated CBD Interval history: Patient resting in bed w/o acute distress. Reports feeling better with abd pain and N/V resolved. Tolerating diet. Objective - Constitutional Vitals: Temp Pulse Resp BP Pulse Ox 97.6 F 57 L 16 118/60 99 07/31/18 12:13 07/31/18 12:13 07/31/18 12:13 07/31/18 12:13 07/31/18 12:13 General appearance: no acute distress - Respiratory Respiratory: bilateral: CTA - Cardiovascular Rhythm: regular - Gastrointestinal General gastrointestinal: Present: soft, non-tender, non-distended, normal bowel sounds - Neurologic Neurological: alert and oriented x3 - Labs CBC & Chem 7: 07/31/18 04:42 07/31/18 04:42 Labs: Laboratory Results - last 24 hr 07/30/18 07/30/18 07/30/18 15:36 17:48 21:41 WBC RBC Hgb Hct MCV MCH MCHC RDW Plt Count Lymph % (Auto) [place] % (Auto) Eos % (Auto) Baso % (Auto) Lymph # [place] # Eos # Baso # Seg Neutrophils % Seg Neutrophils # Sodium Potassium Chloride Carbon Dioxide Anion Gap BUN Creatinine Estimated GFR BUN/Creatinine Ratio Glucose POC Glucose 87 83 121 H Calcium Total Bilirubin AST ALT Alkaline Phosphatase Total Protein Albumin Albumin/Globulin Ratio Lipase 07/31/18 07/31/18 07/31/18 04:42 04:42 06:35 WBC 5.3 RBC 4.06 Hgb 12.0 Hct 35.7 MCV 88 MCH 30 MCHC 34 RDW 14.0 Plt Count 212 Lymph % (Auto) 37.3 H [place] % (Auto) 10.5 H Eos % (Auto) 2.5 Baso % (Auto) 0.6 Lymph # 2.0 [place] # 0.6 Eos # 0.1 Baso # 0.0 Seg Neutrophils % 49.1 Seg Neutrophils # 2.6 Sodium 144 Potassium 4.0 Chloride 106.7 Carbon Dioxide 26 Anion Gap 15 BUN 16 Creatinine 0.6 L Estimated GFR > 60 BUN/Creatinine Ratio 27 Glucose 109 H POC Glucose 104 Calcium 9.0 Total Bilirubin 0.30 AST 14 ALT 13 Alkaline Phosphatase 63 Total Protein 5.6 L Albumin 3.3 L Albumin/Globulin Ratio 1.4 Lipase 29 07/31/18 12:19 WBC RBC Hgb Hct MCV MCH MCHC RDW Plt Count Lymph % (Auto) [place] % (Auto) Eos % (Auto) Baso % (Auto) Lymph # [place] # Eos # Baso # Seg Neutrophils % Seg Neutrophils # Sodium Potassium Chloride Carbon Dioxide Anion Gap BUN Creatinine Estimated GFR BUN/Creatinine Ratio Glucose POC Glucose 98 Calcium Total Bilirubin AST ALT Alkaline Phosphatase Total Protein Albumin Albumin/Globulin Ratio Lipase <KEERTHI IGLLIS - Last Filed: 07/31/18 22:52> Assessment and Plan Patient seen and examined. I have reviewed the advanced practitioner's evaluation, assessment, and plan, and agree with them. I note the following add itions: patient with no abd TTP on exam today and she reports resolution of N/V, has outpatient GI follow up scheduled for Monday, so may DC home from GI standpoint Objective - Constitutional Vitals: Temp Pulse Resp BP Pulse Ox 97.6 F 57 L 16 118/60 99 07/31/18 12:13 07/31/18 12:13 07/31/18 12:13 07/31/18 12:13 07/31/18 12:13 - Labs CBC & Chem 7: 07/31/18 04:42 07/31/18 04:42 Labs: Laboratory Results - last 24 hr 07/31/18 07/31/18 07/31/18 04:42 04:42 06:35 WBC 5.3 RBC 4.06 Hgb 12.0 Hct 35.7 MCV 88 MCH 30 MCHC 34 RDW 14.0 Plt Count 212 Lymph % (Auto) 37.3 H [place] % (Auto) 10.5 H Eos % (Auto) 2.5 Baso % (Auto) 0.6 Lymph # 2.0 [place] # 0.6 Eos # 0.1 Baso # 0.0 Seg Neutrophils % 49.1 Seg Neutrophils # 2.6 Sodium 144 Potassium 4.0 Chloride 106.7 Carbon Dioxide 26 Anion Gap 15 BUN 16 Creatinine 0.6 L Estimated GFR > 60 BUN/Creatinine Ratio 27 Glucose 109 H POC Glucose 104 Calcium 9.0 Total Bilirubin 0.30 AST 14 ALT 13 Alkaline Phosphatase 63 Total Protein 5.6 L Albumin 3.3 L Albumin/Globulin Ratio 1.4 Lipase 29 07/31/18 12:19 WBC RBC Hgb Hct MCV MCH MCHC RDW Plt Count Lymph % (Auto) [place] % (Auto) Eos % (Auto) Baso % (Auto) Lymph # [place] # Eos # Baso # Seg Neutrophils % Seg Neutrophils # Sodium Potassium Chloride Carbon Dioxide Anion Gap BUN Creatinine Estimated GFR BUN/Creatinine Ratio Glucose POC Glucose 98 Calcium Total Bilirubin AST ALT Alkaline Phosphatase Total Protein Albumin Albumin/Globulin Ratio Lipase
--- NOTE | 2018-08-01 04:12 | Treadmill Report ---
THALLIUM STRESS TEST LEFT VENTRICLE: Left ventricle is moderately dilated. There is a moderate to large, fixed apical defect, with no reversibility on the resting study. Gated analysis demonstrates mild to moderate left ventricular systolic dysfunction, ejection fraction 43%. CONCLUSION: Evidence of a prior moderate to large apical myocardial infarct, with no reversible bashir-infarct ischemia demonstrated. There is mild to moderate left ventricular systolic dysfunction, ejection fraction of 43%. Clinical correlation is recommended. [facility]# [id number] [place]/NTS
== END 2018-07-31 15:15 | disposition home or self-care (01) | DRG 446 ==
LOC: ED 22:05 → 4A 07-30 02:33
PROVIDERS: ADMIT Internal Medicine; ATTEND Hospitalist
DX: K83.8 Other specified diseases of biliary tract (principal); R07.9 Chest pain, unspecified; I25.5 Ischemic cardiomyopathy; I25.2 Old myocardial infarction; E11.9 Type 2 diabetes mellitus without complications; I25.10 Atherosclerotic heart disease of native coronary artery without angina pectoris; K21.9 Gastro-esophageal reflux disease without esophagitis; Z95.5 Presence of coronary angioplasty implant and graft; Z87.891 Personal history of nicotine dependence; Z90.49 Acquired absence of other specified parts of digestive tract; Z79.899 Other long term (current) drug therapy; Z79.82 Long term (current) use of aspirin; Z88.0 Allergy status to penicillin; Z88.2 Allergy status to sulfonamides
CPT/HCPCS: 36415; 71045; 74177; 78452; 80053; 81001; 82550; 82553; 82962; 83690; 84484; 85025; 85610; 85730; 93005; 93010; 93017; G0378; A9502; J1644; J2405; J7040; Q9967